=== PATIENT | male | born 1970 | race African-American/Black ===

== ENCOUNTER 2017-04-25 11:55 | Emergency (ER) | payer BC, OTHER ==
[2017-04-25 12:14] LABS: BILIRUBIN, URINE NEG (NEG); GLUCOSE,URINE NEG (NEG); KETONE, URINE TRACE mg/dL (NEG); NITRITE,URINE NEG (NEG); URINE LEUKOCYTE ESTERASE NEG (NEG)
[2017-04-25 12:15] LABS: BLOOD, URINE TRACE (NEG)
[2017-04-25 12:16] LABS: METHOD OF COLLECTION CLEAN CATCH
[2017-04-25 12:16] LABS: URINE COLOR YELLOW (YELLW/STRAW)
[2017-04-25 12:25] LABS: RBC, URINE 0-3 /hpf (0-3); WBC, URINE 0-2 /hpf (0-5)
[2017-04-25 12:26] LABS: AMORPHOUS SEDIMENT, URINE FEW; COMMENT (UR) CULT NOT INDICATED; COMMENT2 (UR) MUCOUS PRESENT; CULTURE IF INDICATED CULT NOT INDICATED; SQUAMOUS EPITHELIAL CELL URINE 0-5 /hpf (0-5)
[2017-04-25] MEDS: ONDANSETRON HCL 4 MG/2 ML VIAL IVP (12:38)
[2017-04-25] MEDS: SODIUM CHLOR 0.9% 1000 ML INJ 1,000 ML IV (12:38)
[2017-04-25] MEDS: KETOROLAC TROMETHAMINE 30 MG/ML (IVP) VIAL IVP (12:39)
[2017-04-25] MEDS: HYDROmorphone HCL PF 1 MG/ML VIAL IVS (12:39)
[2017-04-25] MEDS: SODIUM CHLORIDE 0.9% FLUSH 10 ML FLUSH IVF (12:40)
[2017-04-25 12:48] LABS: CHLORIDE 107 MEQ/L (98-107); POTASSIUM 4.2 MEQ/L (3.5-5.1); SODIUM (NA) 140 MEQ/L (136-145)
[2017-04-25 12:50] LABS: CALCIUM 8.9 MG/DL (8.5-10.1)
[2017-04-25 12:51] LABS: ANION GAP 6 MEQ/L (5-15); BICARBONATE 26.7 MEQ/L (21.0-32.0); BLOOD UREA NITROGEN 11 MG/DL (7-18); GLUCOSE,RANDOM 94 MG/DL (74-106)
[2017-04-25 12:54] LABS: GLOMERULAR FILTRATION RATE 79 ML/MIN (>89)
[2017-04-25 13:34] LABS: AUTOMATED NEUTROPHIL # 4.5 TH/MM3 (1.8-7.7); BASOPHIL % 0.6 % (0.0-2.0); EOSINOPHIL # 0.1 TH/MM3 (0-0.4); EOSINOPHIL % 1.4 % (0.0-4.0); HEMATOCRIT 43.7 % (39.0-51.0); HEMO FLAGS DIFF FINAL; HEMOGLOBIN 14.1 GM/DL (13.0-17.0); LYMPH % 27.6 % (9.0-44.0); LYMPHOCYTE # 1.9 TH/MM3 (1.0-4.8); MEAN CELL VOLUME 93.1 FL (80.0-100.0); MEAN CORPUSCULAR HEMOGLOBIN 29.9 PG (27.0-34.0); MEAN CORPUSCULAR HGB CONC 32.2 % (32.0-36.0); MEAN PLATELET VOLUME 7.4 FL (7.0-11.0); MONOCYTE # 0.5 TH/MM3 (0-0.9); NEUT % 63.4 % (16.0-70.0); PLATELET COUNT 323 TH/MM3 (150-450); RED BLOOD COUNT 4.69 MIL/MM3 (4.50-5.90); RED CELL DISTRIBUTION WIDTH 12.9 % (11.6-17.2)
== END 2017-04-25 14:11 | disposition home or self-care (01) ==
LOC: PHED 11:55
DX: N20.0 Calculus of kidney (principal); Z87.442 Personal history of urinary calculi; F17.210 Nicotine dependence, cigarettes, uncomplicated
CPT/HCPCS: 74176; 80048; 81001; 85025; 96361; 96374; 96375; 99285-25

== ENCOUNTER 2017-08-20 23:23 | Emergency (ER) | payer BC ==
[~2017-08-20] VITALS: Ht 188 cm; Wt 92.3 kg
[~2017-08-20 23:23] MED LIST: AZIT250T3 PO; PERC5TAB12 PO; TAMS5CAP PO
[2017-08-20 23:31] VITALS: BP 158/79; PULSE 97; RESP 20; TEMP 99.1; O2SAT 95
[2017-08-20 23:48] LABS: BILIRUBIN, URINE NEG (NEG); BLOOD, URINE LARGE (NEG); GLUCOSE,URINE NEG (NEG); KETONE, URINE NEG (NEG); NITRITE,URINE NEG (NEG); URINE COLOR YELLOW (YELLW/STRAW); URINE LEUKOCYTE ESTERASE NEG (NEG)
[2017-08-20 23:59] LABS: SQUAMOUS EPITHELIAL CELL URINE 0-5 /hpf (0-5); WBC, URINE 0-2 /hpf (0-5)
[2017-08-21] MEDS ORDERED: ONDANSETRON HCL 4 MG/2 ML VIAL IV PUSH ONE (00:30)
[2017-08-21] MEDS ORDERED: SODIUM CHLOR 0.9% 1000 ML INJ 1,000 ML IV ONE (00:30)
[2017-08-21] MEDS ORDERED: HYDROmorphone HCL PF 2 MG/ML VIAL IV PUSH ONE (00:30)
[2017-08-21] MEDS ORDERED: SODIUM CHLORIDE 0.9% FLUSH 10 ML FLUSH IVF PRN (00:30)
[2017-08-21 00:47] LABS: AUTOMATED NEUTROPHIL # 6.6 TH/MM3 (1.8-7.7); BASOPHIL # 0.1 TH/MM3 (0-0.2); BASOPHIL % 0.6 % (0.0-2.0); EOSINOPHIL % 0.3 % (0.0-4.0); HEMATOCRIT 42.7 % (39.0-51.0); HEMOGLOBIN 14.6 GM/DL (13.0-17.0); LYMPH % 13.8 % (9.0-44.0); LYMPHOCYTE # 1.2 TH/MM3 (1.0-4.8); MEAN CORPUSCULAR HEMOGLOBIN 31.5 PG (27.0-34.0); MEAN CORPUSCULAR HGB CONC 34.2 % (32.0-36.0); MEAN PLATELET VOLUME 7.4 FL (7.0-11.0); MONO % 6.5 % (0.0-8.0); MONOCYTE # 0.6 TH/MM3 (0-0.9); NEUT % 78.8 % (16.0-70.0); PLATELET COUNT 313 TH/MM3 (150-450); RED BLOOD COUNT 4.64 MIL/MM3 (4.50-5.90); RED CELL DISTRIBUTION WIDTH 12.7 % (11.6-17.2); WHITE BLOOD COUNT 8.5 TH/MM3 (4.0-11.0)
[2017-08-21 01:00] LABS: BICARBONATE 27.2 MEQ/L (21.0-32.0); CALCIUM 9.1 MG/DL (8.5-10.1)
--- NOTE | 2017-08-21 02:32 | RADRPT ---
EXAM DATE/TIME: 08/21/2017 00:47 [place] COMPARISON: CT ABDOMEN & PELVIS W/O CONTRAST, April 25, 2017, 12:47. INDICATIONS : Left flank pain. Hematuria x 4 days. Evaluate for renal stone. ORAL CONTRAST: No oral contrast ingested. RADIATION DOSE: 7.17 CTDIvol (mGy) MEDICAL HISTORY : Renal calculi. Hypertension. SURGICAL HISTORY : Lithotripsy. ENCOUNTER: Initial ACUITY: 4 - 6 days PAIN SCALE: 6/10 LOCATION: Left flank TECHNIQUE: Volumetric scanning of the abdomen and pelvis was performed. Using automated exposure control and ad justment of the mA and/or kV according to patient size, radiation dose was kept as low as reasonably achievable to obtain optimal diagnostic quality images. DICOM format image data is available electro nically for review and comparison. FINDINGS: There is an approximately 4 mm calculus lower pole left kidney. Numerous additional tiny 1-2 mm calcu li present in both kidneys. There is a questionable tiny 1 mm calculus in the left renal pelvis. No d efinite ureteral or bladder calculi are seen. No hydronephrosis. No acute findings the visualized liver, spleen, adrenals or pancreas. No free fluid or bowel obstruct ion. No acute bony abnormalities. CONCLUSION: 1. Questionable tiny 1 mm calculus left renal pelvis. No hydronephrosis or ureteral calculi identifie d. Numerous bilateral nonobstructing renal calculi similar in appearance to April. Alex Amador MD on August 21, 2017 at 1:18 Board Certified Radiologist. This report was verified electronically.
[2017-08-21 02:41] LABS: CREATININE 1.3 MG/DL (0.60-1.30)
--- NOTE | 2017-08-21 02:57 | PD ---
HPI Chief Complaint: Flank/Kidney Pain Time Seen by Provider: 00:30 Travel History International Travel<30 days: No Contact w/Intl Traveler<30days: No Traveled to known affect area: No History of Present Illness HPI 47-year-old male with recurrent left flank to her left lower quadrant pain. Patient has history of similar symptoms in the past related to kidney stones. Patient with long history of recurrent kidney stones and is under the care of urologist Dr. Gill. Patient states he has been taking Flomax without symptomatic relief as well as Aleve. Patient rates his pain as moderate to severe. Patient's had nausea without vomiting. Patient is noted hematuria. PFSH Past Medical History Narrative Medical Kidney stones, lithotripsy; nursing notes reviewed Hx Anticoagulant Therapy: No Cardiovascular Problems: No Chemotherapy: No Cerebrovascular Accident: No Diabetes: No Diminished Hearing: No Genitourinary: Yes (HX KIDNEY STONE) Kidney Stones: Yes Respiratory: No Immunizations Current: Yes Influenza Vaccination: Yes Past Surgical History Surgical History: No Previous Surgery AICD: No Genitourinary Surgery: Yes (lithotrypsy) Joint Replacement: No Pacemaker: No Other Surgery: Yes (LEFT HAND 2ND DIGIT, REPAIR OF A NERVE) Social History Alcohol Use: No Tobacco Use: No Substance Use: No Allergies-Medications (Allergen,Severity, Reaction): Coded Allergies: Influenza Virus Vaccines (Verified Adverse Reaction, Mild, N/V, 08/20/17) Reported Meds & Prescriptions Reported Meds & Active Scripts Active Zofran Odt (Ondansetron Odt) 4 Mg Tab 4 Mg SL Q6HR PRN Percocet (Oxycodone-Acetaminophen) 5-325 mg Tab 1 Tab PO Q6H PRN Reported Flomax (Tamsulosin HCl) 0.4 Mg Cap 0.4 Mg PO HS Review of Systems Except as stated in HPI: all other systems reviewed are Neg Physical Exam Narrative GENERAL: SKIN: Warm and dry. HEAD: Normocephalic. EYES: No scleral icterus. No injection or drainage. NECK: Supple, trachea midline. No JVD or lymphadenopathy. CARDIOVASCULAR: Regular rate and rhythm without murmurs, gallops, or rubs. RESPIRATORY: Breath sounds equal bilaterally. No accessory muscle use. GASTROINTESTINAL: Abdomen soft, left lower quadrant tenderness to palpation no guarding or rebound, nondistended. MUSCULOSKELETAL: No cyanosis, or edema. BACK: Nontender without obvious deformity. Left CVA tenderness. Data Data Last Documented VS Vital Signs Date Time Temp Pulse Resp B/P (MAP) Pulse Ox O2 Delivery O2 Flow Rate FiO2 08/21/17 03:26 98.2 88 16 132/74 (93) 100 Nasal Cannula Orders Orders Urinalysis - C+S If Indicated (08/20/17 23:35) Complete Blood Count With Diff (08/21/17 00:30) Basic Metabolic Panel (Bmp) (08/21/17 00:30) Ct Abd/Pel W/O Iv Contrast (08/21/17 00:30) Ecg Monitoring (08/21/17 00:30) Iv Access Insert/Monitor (08/21/17 00:30) Ondansetron Inj (Zofran Inj) (08/21/17 00:30) Sodium Chloride 0.9% Flush (Ns Flush) (08/21/17 00:30) Sodium Chlor 0.9% 1000 Ml Inj (Ns 1000 M (08/21/17 00:30) Hydromorphone Pf Inj (Dilaudid Pf Inj) (08/21/17 00:30) Ed Discharge Order (08/21/17 02:55) Labs Laboratory Tests Test 08/20/17 23:40 08/21/17 00:37 Urine Color YELLOW Urine Turbidity CLEAR Urine pH 6.0 Urine Specific [place] 1.025 Urine Protein TRACE mg/dL Urine Glucose (UA) NEG mg/dL Urine Ketones NEG mg/dL Urine Occult Blood LARGE Urine Nitrite NEG Urine Bilirubin NEG Urine Urobilinogen 0.2 MG/DL Urine Leukocyte Esterase NEG Urine RBC 20-24 /hpf Urine WBC 0-2 /hpf Urine Squamous Epithelial Cells 0-5 /hpf Microscopic Urinalysis Comment CULT NOT INDICATED White Blood Count 8.5 TH/MM3 Red Blood Count 4.64 MIL/MM3 Hemoglobin 14.6 GM/DL Hematocrit 42.7 % Mean Corpuscular Volume 92.0 FL Mean Corpuscular Hemoglobin 31.5 PG Mean Corpuscular Hemoglobin Concent 34.2 % Red Cell Distribution Width 12.7 % Platelet Count 313 TH/MM3 Mean Platelet Volume 7.4 FL Neutrophils (%) (Auto) 78.8 % Lymphocytes (%) (Auto) 13.8 % Monocytes (%) (Auto) 6.5 % Eosinophils (%) (Auto) 0.3 % Basophils (%) (Auto) 0.6 % Neutrophils # (Auto) 6.6 TH/MM3 Lymphocytes # (Auto) 1.2 TH/MM3 Monocytes # (Auto) 0.6 TH/MM3 Eosinophils # (Auto) 0.0 TH/MM3 Basophils # (Auto) 0.1 TH/MM3 CBC Comment DIFF FINAL Differential Comment Blood Urea Nitrogen 13 MG/DL Creatinine 1.30 MG/DL Random Glucose 111 MG/DL Calcium Level 9.1 MG/DL Sodium Level 140 MEQ/L Potassium Level 3.7 MEQ/L Chloride Level 107 MEQ/L Carbon Dioxide Level 27.2 MEQ/L Anion Gap 6 MEQ/L Estimat Glomerular Filtration Rate 72 ML/MIN MDM Medical Decision Making Medical Screen Exam Complete: Yes Emergency Medical Condition: Yes Medical Record Reviewed: Yes Interpretation(s) UA: wnl Vital Signs Date Time Temp Pulse Resp B/P (MAP) Pulse Ox O2 Delivery O2 Flow Rate FiO2 08/20/17 23:31 99.1 97 20 158/79 (105) 95 CT abd/pel: CONCLUSION: 1. Questionable tiny 1 mm calculus left renal pelvis. No hydronephrosis or ureteral calculi identified. Numerous bilateral nonobstructing renal calculi similar in appearance to April. Alex Amador MD on August 21, 2017 at 1:18 Board Certified Radiologist. This report was verified electronically. Differential Diagnosis Obstructive uropathy, renal colic, UTI, renal mass Narrative Course IV access obtained specimens collected and sent for resulting; patient administered Zofran 4 mg IV 1 L normal saline [address] abdomen pelvis ordered CT abdomen pelvis consistent with multiple bilateral kidney stones 1 mm stone at the renal pelvis no hydronephrosis no hydroureter Urinalysis normal Patient is stable for outpatient management and follow-up with his urologist Diagnosis Primary Impression: Kidney stone on left side Referrals: Prudencio Gill MD 1 day Patient Instructions: Narcotic given in the ED, General Instructions Additional Instructions: Increase fluid hydration Continue Flomax as prescribed Take pain medication as prescribed as needed Strain urine Take medication as prescribed as needed for nausea and/or vomiting Take acetaminophen as needed for fever 100.4F or greater May continue take ibuprofen 800 mg as often as every 8 hours as needed for pain associated with inflammation Return the emergency department for any concerns or change in condition Follow-up with your urologist Dr. Gill call office on Tuesday Med/Other Pt SpecificInfo: Prescription(s) given Scripts Ondansetron Odt (Zofran Odt) 4 Mg Tab 4 MG SL Q6HR Y for Nausea/Vomiting, #10 TAB 0 Refills Prov: Jeanette Rhodes MD 08/21/17 Oxycodone-Acetaminophen (Percocet) 5-325 mg Tab 1 TAB PO Q6H Y for PAIN, #10 TAB 0 Refills Prov: Jeanette Rhodes MD 08/21/17 Disposition: 01 DISCHARGE HOME Condition: Stable Jeanette Rhodes MD August 21, 2017 02:57
[2017-08-21] MEDS ORDERED: PERC5TAB12 PO (03:00)
[2017-08-21] MEDS ORDERED: ZOFR4TAB3 SL (03:00)
[2017-08-21 03:26] VITALS: BP 132/74; TEMP 98.2
== END 2017-08-21 03:10 | disposition home or self-care (01) ==
LOC: PHED 23:23
DX: N20.0 Calculus of kidney (principal); Z87.442 Personal history of urinary calculi
CPT/HCPCS: 74176; 80048; 81001; 85025; 96374; 99284; J1170; J2405; J7030